=== PATIENT | female | born 1990 | race Caucasian/White ===

== ENCOUNTER → 2016-10-12 | Outpatient (CLI) | payer BC, OTHER ==
[~2016-10-12] MED LIST: ACET-1256 PO; BCPILLS PO; CYCL10TA6 PO; GABA1CAP PO; HYDR-5688 PO; IBUP-1451 PO; LRS10 PO; LYR25 PO; MBC75 PO; METH4PAK PO; NRT25 PO; PRED10TA PO
--- NOTE | 2016-10-12 09:40 | DIAGNOSTIC IMAGING REPORT ---
LEG LENGTH STUDY CLINICAL HISTORY: Lumbago. Leg length discrepancy. FINDINGS: 5 radiographs of the lower extremities and pelvis from a leg length study are presented. The skeletal structures are well mineralized. No fracture is identified. The hip, knee, and ankle joints are grossly normal. The right lower extremity measures 86.6 cm and the left lower extremity measures 86.2 cm as measured from the femoral head to the tibial plafond. There is no significant pelvic tilt. A nonobstructed abdominal bowel gas pattern is noted. IMPRESSION: 1. No acute bony abnormality is seen in the lower extremities or pelvis. 2. The right leg measures 4 mm longer than the left. Electronically signed by: Mason Dee M.D. 10/12/2016 9:39 AM Dictated Date/Time: 10/12/2016 9:35 AM
== END | disposition home or self-care (01) ==
LOC: C.RADBC 09:16
PROVIDERS: ATTEND Physician Assistant
DX: M54.5 Low back pain (principal); M21.70 Unequal limb length (acquired), unspecified site

== ENCOUNTER 2017-02-16 08:34 | Observation (INO) | payer BC, OTHER ==
[~2017-02-16] VITALS: Ht 172.7 cm; Wt 75.0 kg
[~2017-02-16 08:34] MED LIST changes: -CYCL10TA6 PO; -HYDR-5688 PO; -LRS10 PO; -LYR25 PO; -MBC75 PO; -METH4PAK PO; -NRT25 PO; -PRED10TA PO
--- NOTE | 2017-02-16 09:03 | EMERGENCY ROOM VISIT NOTE ---
History Report prepared by Juan C: Kumar De Leon Under the Supervision of: Dr. Yessenia East M.D. First contact with patient: 08:44 Chief Complaint: BACK PAIN Stated Complaint: BACK PAIN History of Present Illness The patient is a 26 year old female who presents to the Emergency Room with complaints of worsening low back pain that started this morning. She says that she has had chronic back pain since 2011 after hurting her back, and has been doing physical therapy in addition to pain management injections. The patient states that it is thought to be a problem with her SI joint L4-L5. She says that the pain has not gotten bad enough that she could not walk or get up out of bed, but this morning, she woke up and could not get up out of bed. The patient adds that she has bilateral leg pain as well. She says that it is hard to turn and she is unable to sit or walk around. The patient notes that she was scheduled to get an MRI a couple weeks ago but could not due to her mother being in a car accident. She denies any fevers, or loss of control of her bowel or bladder. The patient adds that she has a history of kidney stones, but this current pain does not feel like one. The patient denies any chance of . She says that she has never seen a spine doctor. Source of History: patient Onset: This morning Position: back (lower) Symptom Intensity: cannot get out of bed, cannot sit due to pain Timing: worsening Modifying Factors (Worsening): movement Associated Symptoms: No fevers Note: Associated symptoms: Bilateral leg pain. Denies loss of control of bladder or bowel. Review of Systems See HPI for pertinent positives & negatives. A total of 10 systems reviewed and were otherwise negative. 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: employed, student Current/Historical Medications Scheduled Control Pills ( Control Pills), 1 TAB PO HS Cyclobenzaprine Hcl (Flexeril), 1 TAB PO TID Prednisone (Prednisone), 10 MG PO DIRECTED Scheduled PRN Hydrocodone/Acetaminophen 5MG/325MG (Grethel 5MG/325MG), 1 TABLET PO Q6 PRN for Pain Allergies Coded Allergies: No Known Allergies (Verified , 02/16/17) Uncoded Allergies: NKA (Allergy, Mild, 02/03/15) Physical Exam Vital Signs Date Time Temp Pulse Resp B/P (MAP) Pulse Ox O2 Delivery O2 Flow Rate FiO2 02/16/17 14:11 107 18 145/75 98 Room Air 02/16/17 13:26 113 02/16/17 12:47 90 18 114/65 96 Room Air 02/16/17 09:51 82 02/16/17 09:50 84 18 137/77 99 Room Air 02/16/17 08:36 36.6 94 20 104/53 99 Room Air Physical Exam Vital signs reviewed. General: 26 year old female who was found kneeling on one leg at bedside unable to change into gown or get into bed without help. HEENT: No scleral icterus, PERRLA, neck supple. Atraumatic. Cardiovascular: Regular rate and rhythm, no extra sounds. Pulmonary: Clear to auscultation bilaterally, normal work of breathing. Abdomen: Soft, nontender, nondistended, positive bowel sounds. Musculoskeletal: Left greater than right paraspinous muscle tenderness and spasm. Unable to perform straight leg raise on either leg secondary to low back pain. Difficulty changing positions without significant assistance. Neurologic: Patient awake alert and oriented x 3 Skin: Warm, dry, no rash Medical Decision & Procedures ER Provider Diagnostic Interpretation: LUMBAR SPINE W/O CONTRAST HISTORY: Pain lumbar radiculopathy TECHNIQUE: Multiplanar multisequence MRI of the lumbar spine was performed without the use of contrast. COMPARISON: None. FINDINGS: For the purpose of the report the L5-S1 disc space will be located on axial image 27 of 30. Moderate disc desiccation L4-L5. Posterior bulging disc/mild disc herniation at that level. No evidence for bone marrow replacing process. L1-L2: No significant central canal or neural foraminal narrowing. L2-L3: No significant central canal or neural foraminal narrowing. L3-L4: No significant central canal or neural foraminal narrowing. L4-L5: Mild broad-based central disc herniation. Moderate impact anterior thecal sac. No significant compromise of the neuroforamina. L5-S1: No significant central canal or neural foraminal narrowing. IMPRESSION: 1. Mild central disc herniation L4-L5. 2. Minimal/mild impact upon the anterior thecal sac. 3. Study is otherwise negative. The above report was generated using voice recognition software. It may contain grammatical, syntax or spelling errors. Electronically signed by: Brandan Tubbs M.D. 02/16/2017 3:45 PM Dictated Date/Time: 02/16/2017 3:40 PM Laboratory Results 02/16/17 09:10 Red Blood Count 4.26, Mean Corpuscular Volume 93.9, Mean Corpuscular Hemoglobin 31.7, Mean Corpuscular Hemoglobin Concent 33.8, Mean Platelet Volume 10.0, Neutrophils (%) (Auto) 77.6, Lymphocytes (%) (Auto) 16.6, Monocytes (%) (Auto) 4.4, Eosinophils (%) (Auto) 0.7, Basophils (%) (Auto) 0.5, Neutrophils # (Auto) 8.50, Lymphocytes # (Auto) 1.82, Monocytes # (Auto) 0.48, Eosinophils # (Auto) 0.08, Basophils # (Auto) 0.05 02/16/17 09:10 Test 02/16/17 09:10 02/16/17 13:55 White Blood Count 10.95 K/uL (4.8-10.8) Red Blood Count 4.26 M/uL (4.2-5.4) Hemoglobin 13.5 g/dL (12.0-16.0) Hematocrit 40.0 % (37-47) Mean Corpuscular Volume 93.9 fL (80-100) Mean Corpuscular Hemoglobin 31.7 pg (25-34) Mean Corpuscular Hemoglobin Concent 33.8 g/dl (32-36) Platelet Count 255 K/uL (130-400) Mean Platelet Volume 10.0 fL (7.4-10.4) Neutrophils (%) (Auto) 77.6 % Lymphocytes (%) (Auto) 16.6 % Monocytes (%) (Auto) 4.4 % Eosinophils (%) (Auto) 0.7 % Basophils (%) (Auto) 0.5 % Neutrophils # (Auto) 8.50 K/uL (1.4-6.5) Lymphocytes # (Auto) 1.82 K/uL (1.2-3.4) Monocytes # (Auto) 0.48 K/uL (0.11-0.59) Eosinophils # (Auto) 0.08 K/uL (0-0.5) Basophils # (Auto) 0.05 K/uL (0-0.2) RDW Standard Deviation 42.6 fL (36.4-46.3) RDW Coefficient of Variation 12.5 % (11.5-14.5) Immature Granulocyte % (Auto) 0.2 % Immature Granulocyte # (Auto) 0.02 K/uL (0.00-0.02) Anion Gap 6.0 mmol/L (3-11) Est Creatinine Clear Calc Drug Dose 102.0 ml/min Estimated GFR () 110.4 Estimated GFR (Non- 95.2 BUN/Creatinine Ratio 14.3 (10-20) Calcium Level 8.7 mg/dl (8.5-10.1) Urine Color YELLOW Urine Appearance CLOUDY (CLEAR) Urine pH 7.5 (4.5-7.5) Urine Specific [place] 1.021 (1.000-1.030) Urine Protein NEG (NEG) Urine Glucose (UA) NEG (NEG) Urine Ketones 1+ (NEG) Urine Occult Blood NEG (NEG) Urine Nitrite NEG (NEG) Urine Bilirubin NEG (NEG) Urine Urobilinogen NEG (NEG) Urine Leukocyte Esterase LARGE (NEG) Urine WBC (Auto) >30 /hpf (0-5) Urine RBC (Auto) 0-4 /hpf (0-4) Urine Hyaline Casts (Auto) 10-30 /lpf (0-5) Urine Epithelial Cells (Auto) >30 /lpf (0-5) Urine Bacteria (Auto) 1+ (NEG) Laboratory results per my review. Medications Administered Medications (Trade) Dose Ordered Sig/John Route Start Time Stop Time Status Last Admin Dose Admin Morphine Sulfate (MoRPHine SULFATE INJ) 4 mg NOW STAT IV 02/16/17 09:31 02/16/17 09:33 DC 02/16/17 09:43 4 MG Lorazepam (Ativan Inj) 1 mg NOW STAT IV 02/16/17 09:31 02/16/17 09:33 DC 02/16/17 09:43 1 MG Methylprednisolone Sodium Succinate (Solu-Medrol IV) 125 mg NOW STAT IV 02/16/17 09:31 02/16/17 09:33 DC 02/16/17 09:42 125 MG Sodium Chloride 1,000 ml @ 999 mls/hr Q1H1M STAT IV 02/16/17 09:31 02/16/17 10:31 DC 02/16/17 09:43 999 MLS/HR Morphine Sulfate (MoRPHine SULFATE INJ) 4 mg NOW STAT IV 02/16/17 10:16 02/16/17 10:17 DC 02/16/17 10:27 4 MG Morphine Sulfate (MoRPHine SULFATE INJ) 4 mg NOW STAT IV 02/16/17 12:49 02/16/17 12:50 DC 02/16/17 13:09 4 MG Promethazine HCl 12.5 mg/Sodium Chloride 50.5 ml @ 204 mls/hr NOW STAT IV 02/16/17 14:01 02/16/17 14:15 DC 02/16/17 14:10 204 MLS/HR ED Course 0854: Past medical records reviewed. The patient was evaluated in room A11B. A complete history and physical examination was performed. 0931: Ordered NSS 1000 ml @ 999 mls/hr IV, Solu-Medrol IV 125 mg IV, Ativan Inj 1 mg IV, Morphine Sulfate Inj 4 mg IV. 1400: I reevaluated and updated the patient. 1401: Ordered Promethazine HCl 12.5 mg/Sodium Chloride 50.5 ml @ 204 mls/hr IV. Medical Decision Differential diagnosis: Etiologies such as musculoskeletal, disc herniation, fracture, aortic disease, metastatic disease, cord compression, discitis, infection, renal colic, gastrointestinal, acute exacerbation of chronic back pain, sciatica, cauda equina, as well as others were entertained. This patient was evaluated and appeared to be in no significant distress. IV access was obtained and laboratory work was drawn. The patient was placed on the laboratory monitor. She was medicated with IV morphine, IV Ativan and IV Solu- Medrol. The patient required several additional doses of IV morphine for her discomfort. Laboratory work is fairly unrevealing. The patient was sent for MRI of the lumbar spine due to her immobilizing pain. The MRI reveals an L4-L5 lumbar disc herniation with mild compression of the anterior thecal sac. An ambulatory trial was performed and the patient failed, stating her pain increased to a 10/10. She is fearful of the stairs into her house as well. [facility] and further management. Patient is aware of the plan and agrees. Medication Reconcilliation Current Medication List: was personally reviewed by me Blood Pressure Screening Patient's blood pressure: Normal blood pressure Impression Primary Impression: Lumbar disc herniation with radiculopathy Scribe Attestation The scribe's documentation has been prepared under my direction and personally reviewed by me in its entirety. I confirm that the note above accurately reflects all work, treatment, procedures, and medical decision making performed by me. Departure Information Prescriptions Hydrocodone/Acetaminophen 5MG/325MG (Grethel 5MG/325MG) Tab 1 TABLET PO Q6 Y for Pain, #20 TAB Prov: Yessenia East M.D. 02/16/17 Cyclobenzaprine Hcl (FLEXERIL) 10 Mg Tab 1 TAB PO TID for 10 Days, #30 TAB Prov: Yessenia East M.D. 02/16/17 Prednisone (Prednisone) 10 Mg Tab 10 MG PO DIRECTED, #31 TAB 40 mg for 4 days, 30 mg for 3 days, 20 mg for 2 days, 10 mg for 2 days Prov: Yessenia East M.D. 02/16/17 Referrals Maciej Stinson M.D. (PCP) Patient Instructions [facility]
[2017-02-16] MEDS ORDERED: SODIUM CHLORIDE 0.9% 1000ML 1,000 ML IV STA (09:31)
[2017-02-16] MEDS ORDERED: MoRPHine SULFATE 4 MG/ML 1 ML CARP\\VIAL IV STA ×3 (09:31→12:49)
[2017-02-16] MEDS ORDERED: LORAZEPAM 2 MG/ML 1 ML VIAL IV STA (09:31)
[2017-02-16] MEDS ORDERED: METHYLPREDNISOLONE 125 MG VIAL IV STA (09:31)
[2017-02-16 10:25] LABS: BASO % 0.5 %; BASO ABS # 0.05 K/uL (0-0.2); COMPLETE YES; EOS % 0.7 %; IG% 0.2 %; LYMPH % 16.6 %; LYMPH ABS # 1.82 K/uL (1.2-3.4); MEAN CELL VOLUME 93.9 fL (80-100); MEAN CORPUSCULAR HEMOGLOBIN 31.7 pg (25-34); MEAN CORPUSCULAR HGB CONC 33.8 g/dl (32-36); MONO % 4.4 %; NEUT % 77.6 %; PLATELET COUNT 255 K/uL (130-400); RED BLOOD COUNT 4.26 M/uL (4.2-5.4); WHITE BLOOD COUNT 10.95 K/uL (4.8-10.8)
[2017-02-16 10:46] LABS: POTASSIUM 3.9 mmol/L (3.5-5.1)
[2017-02-16 10:48] LABS: BUN/CREATININE RATIO 14.3 (10-20); CALCIUM 8.7 mg/dl (8.5-10.1); CREATININE 0.85 mg/dl (0.60-1.20)
[2017-02-16] MEDS ORDERED: PROMETHAZINE HCL INJ 12.5 MG in SODIUM CHLORIDE 0.9% 50ML 50 ML IV STA (14:01)
[2017-02-16] MEDS ORDERED: PROMETHAZINE HCL INJ 25 MG/ML 1 ML VIAL ONE (14:05)
[2017-02-16 14:24] LABS: URINE APPEARANCE CLOUDY (CLEAR); URINE BILIRUBIN NEG (NEG); URINE COLOR YELLOW; URINE EPITHELIAL CELL AUTO >30 /lpf (0-5); URINE NITRITE NEG (NEG); URINE PH 7.5 (4.5-7.5); URINE SPECIFIC GRAVITY 1.021 (1.000-1.030); UROBILINOGEN NEG (NEG); ZZUR CULT IF INDIC CLEAN CATCH YES
[2017-02-16 15:07] LABS: MANUAL MICROSCOPIC REQUIRED? NO; REVIEW REQ? NO; SULFASALICYLIC ACID NEG (NEG)
--- NOTE | 2017-02-16 15:46 | DIAGNOSTIC IMAGING REPORT ---
LUMBAR SPINE W/O CONTRAST HISTORY: Pain lumbar radiculopathy TECHNIQUE: Multiplanar multisequence MRI of the lumbar spine was performed without the use of contrast. COMPARISON: None. FINDINGS: For the purpose of the report the L5-S1 disc space will be located on axial image 27 of 30. Moderate disc desiccation L4-L5. Posterior bulging disc/mild disc herniation at that level. No evidence for bone marrow replacing process. L1-L2: No significant central canal or neural foraminal narrowing. L2-L3: No significant central canal or neural foraminal narrowing. L3-L4: No significant central canal or neural foraminal narrowing. L4-L5: Mild broad-based central disc herniation. Moderate impact anterior thecal sac. No significant compromise of the neuroforamina. L5-S1: No significant central canal or neural foraminal narrowing. IMPRESSION: 1. Mild central disc herniation L4-L5. 2. Minimal/mild impact upon the anterior thecal sac. 3. Study is otherwise negative. The above report was generated using voice recognition software. It may contain grammatical, syntax or spelling errors. Electronically signed by: Brandan Tubbs M.D. 02/16/2017 3:45 PM Dictated Date/Time: 02/16/2017 3:40 PM
[2017-02-16] MEDS ORDERED: PRED10TA PO (15:59)
[2017-02-16] MEDS ORDERED: CYCL10TA6 PO (16:00)
[2017-02-16] MEDS ORDERED: HYDR-5688 PO (16:00)
[2017-02-16 16:45] VITALS: Ht 172.7 cm; Wt 75.0 kg
[2017-02-16] MEDS ORDERED: ACETAMINOPHEN 325 MG TAB PO PRN (17:45)
[2017-02-16] MEDS ORDERED: ONDANSETRON INJ 2 MG/ML 2 ML VIAL IV PRN (17:45)
--- NOTE | 2017-02-16 17:57 | Medical Student: [facility] ---
Med Student History & Physical Date & Time of Service: Feb 16, 2017 at 17:57 Chief Complaint: Back Pain Primary Care Physician: Maciej Stinson M.D. History of Present Illness Source: patient, clinic records Ms. Paredes is a 26yo female with a history of low back pain since 2011 who presents with an exacerbation of her back pain since last night. She reports being more uncomfortable yesterday with tightness and spasms in her low back which culminated with her being unable to get out of bed this morning. At times her pains shoots down her right anterior leg to the knee. She has some episodic right foot numbness, especially when walking. Her pain is primarily on the right side of her back and is made worse with bending forward and standing up from seated position. Her pain is also made worse with walking. No falls. No bowel or bladder issues. Denies fevers, chills, headache, dizziness, lightheadedness, cp, sob, abdominal pain, muscle weakness, calf tenderness. 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 She sees Dr. Hamilton at [facility] and has had multiple SI joint injections with equivocal results. Additionally, she has participated in multiple courses of physical therapy with limited benefit. She is currently takes flexeril though she does not get much relief from it. She has tried gabapentin in the past but it makes her drowsy. She gets nauseated with narcotic pain medication. Past Medical/Surgical History Medical Problems: (1) Herniated intervertebral disc of lumbar spine Status: Acute (2) Lumbar disc herniation with radiculopathy Status: Acute Social History Smoking Status: Never Smoker Alcohol Use: occasionally Drug Use: none Marital Status: single, in relationship Housing status: lives with family, lives with significant other (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 Allergies Coded Allergies: No Known Allergies (Verified , 02/16/17) Uncoded Allergies: NKA (Allergy, Mild, 02/03/15) Medications Control Pills ( Control Pills), 1 TAB PO HS Cyclobenzaprine Hcl (Flexeril), 1 TAB PO TID Hydrocodone/Acetaminophen 5MG/325MG ([place] 5MG/325MG), 1 TABLET PO Q6 PRN for Pain Prednisone (Prednisone), 10 MG PO DIRECTED Review of Systems Constitutional: No fever, No chills Eyes: No eye pain, No diplopia ENT: No sore throat, No trouble swallowing Respiratory: No cough, No wheezing, No shortness of breath Cardiovascular: No chest pain, No palpitations Abdomen: No pain, No nausea, No vomiting, No diarrhea, No constipation Genitourinary - Female: No urinary incontinence, No urinary retention Neurologic: + numbness/tingling, No paralysis Physical Exam Vital Signs (24 Hours) Date Time Temp Pulse Resp B/P (MAP) Pulse Ox O2 Delivery O2 Flow Rate FiO2 02/16/17 16:45 Room Air 02/16/17 14:11 107 18 145/75 98 Room Air 02/16/17 13:26 113 02/16/17 12:47 90 18 114/65 96 Room Air 02/16/17 09:51 82 02/16/17 09:50 84 18 137/77 99 Room Air 02/16/17 08:36 36.6 94 20 104/53 99 Room Air General Appearance: WD/WN, + mild distress (laying still supine in bed) Head: normocephalic, atraumatic Eyes: normal inspection, PERRL, EOMI ENT: normal ENT inspection, hearing grossly normal, pharynx normal Neck: supple, no adenopathy Respiratory/Chest: lungs clear, normal breath sounds, no respiratory distress, no accessory muscle use Cardiovascular: regular rate, rhythm, no edema, no gallop, no murmur, normal peripheral pulses Abdomen/GI: normal bowel sounds, non tender, soft Back: + muscle spasm, + pertinent finding (extremely guarded) Extremities/Musculoskelatal: normal inspection, no calf tenderness, normal capillary refill Neurologic/Psych: pattern chart writer II-XII nml as tested, no motor/sensory deficits, alert, normal mood/affect, normal reflexes, oriented x 3 Neuro: Sensation to light touch and pinprick intact bilaterally L1, L2, L3, L4, L5, S1 Strength RLE L1 5/5 pain L2 5/5 pain L3 5/5 L4 5/5 L5 5/5 S1 5/5 LLE L1 4/5 pain L2 4/5 pain L3 5/5 L4 5/5 L5 5/5 S1 5/5 LE ROM limited by pain Bilateral upper extremities 5/5 strength throughout Reflexes 2+ bilateral biceps, triceps, brachioradialis, patellar, Achilles reflexes, Babinski is downgoing bilaterally Cerebellar heel to solo deferred due to pain Gait not tested Diagnostics Laboratory Results Results Past 24 Hours Test 02/16/17 09:10 02/16/17 13:55 Range/Units White Blood Count 10.95 4.8-10.8 K/uL Red Blood Count 4.26 4.2-5.4 M/uL Hemoglobin 13.5 12.0-16.0 g/dL Hematocrit 40.0 37-47 % Mean Corpuscular Volume 93.9 80-100 fL Mean Corpuscular Hemoglobin 31.7 25-34 pg Mean Corpuscular Hemoglobin Concent 33.8 32-36 g/dl Platelet Count 255 130-400 K/uL Mean Platelet Volume 10.0 7.4-10.4 fL Neutrophils (%) (Auto) 77.6 % Lymphocytes (%) (Auto) 16.6 % Monocytes (%) (Auto) 4.4 % Eosinophils (%) (Auto) 0.7 % Basophils (%) (Auto) 0.5 % Neutrophils # (Auto) 8.50 1.4-6.5 K/uL Lymphocytes # (Auto) 1.82 1.2-3.4 K/uL Monocytes # (Auto) 0.48 0.11-0.59 K/uL Eosinophils # (Auto) 0.08 0-0.5 K/uL Basophils # (Auto) 0.05 0-0.2 K/uL RDW Standard Deviation 42.6 36.4-46.3 fL RDW Coefficient of Variation 12.5 11.5-14.5 % Immature Granulocyte % (Auto) 0.2 % Immature Granulocyte # (Auto) 0.02 0.00-0.02 K/uL Sodium Level 139 136-145 mmol/L Potassium Level 3.9 3.5-5.1 mmol/L Chloride Level 109 98-107 mmol/L Carbon Dioxide Level 24 21-32 mmol/L Anion Gap 6.0 3-11 mmol/L Blood Urea Nitrogen 12 7-18 mg/dl Creatinine 0.85 0.60-1.20 mg/dl Est Creatinine Clear Calc Drug Dose 102.0 ml/min Estimated GFR () 110.4 Estimated GFR (Non- 95.2 BUN/Creatinine Ratio 14.3 10-20 Random Glucose 98 70-99 mg/dl Calcium Level 8.7 8.5-10.1 mg/dl Urine Color YELLOW Urine Appearance CLOUDY CLEAR Urine pH 7.5 4.5-7.5 Urine Specific [place] 1.021 1.000-1.030 Urine Protein NEG NEG Urine Glucose (UA) NEG NEG Urine Ketones 1+ NEG Urine Occult Blood NEG NEG Urine Nitrite NEG NEG Urine Bilirubin NEG NEG Urine Urobilinogen NEG NEG Urine Leukocyte Esterase LARGE NEG Urine WBC (Auto) >30 0-5 /hpf Urine RBC (Auto) 0-4 0-4 /hpf Urine Hyaline Casts (Auto) 10-30 0-5 /lpf Urine Epithelial Cells (Auto) >30 0-5 /lpf Urine Bacteria (Auto) 1+ NEG Microbiology Results 02/16/17 Urine Culture, Received Pending Diagnostic Radiology LUMBAR SPINE W/O CONTRAST HISTORY: Pain lumbar radiculopathy TECHNIQUE: Multiplanar multisequence MRI of the lumbar spine was performed without the use of contrast. COMPARISON: None. FINDINGS: For the purpose of the report the L5-S1 disc space will be located on axial image 27 of 30. Moderate disc desiccation L4-L5. Posterior bulging disc/mild disc herniation at that level. No evidence for bone marrow replacing process. L1-L2: No significant central canal or neural foraminal narrowing. L2-L3: No significant central canal or neural foraminal narrowing. L3-L4: No significant central canal or neural foraminal narrowing. L4-L5: Mild broad-based central disc herniation. Moderate impact anterior thecal sac. No significant compromise of the neuroforamina. L5-S1: No significant central canal or neural foraminal narrowing. IMPRESSION: 1. Mild central disc herniation L4-L5. 2. Minimal/mild impact upon the anterior thecal sac. 3. Study is otherwise negative. The above report was generated using voice recognition software. It may contain grammatical, syntax or spelling errors. Electronically signed by: Brandan Tubbs M.D. 02/16/2017 3:45 PM Dictated Date/Time: 02/16/2017 3:40 PM Impression Assessment and Plan This is a 26yo female with a history of low back pain since 2011 who presents with an exacerbation of her back pain last night and inability to move or bend without sharp pain today. MRI lumbar spine shows L4-L5 central disk herniation. Patient will be admitted for observation and given IV methylprednisolone. Plan: Precautions: Fall 1. L4-L5 central disk herniation with severe low back pain -admit to med/surg for observation -OOB as tolerated -vitals qshift -IV solumedrol -PRN Tylenol 650mg q4h prn pain -baclofen 5mg PO TID -consult pain management -consider PM&R consult for lumbar epidural steroid injection 2. Diet -Regular diet 3. DVT prophylaxis -SCD -may ambulate as tolerated 4. Disposition -Location: home -Date: TBD Level of Care Med/Surg Advanced Directives Existing Living Will: No Existing Power of Homicide Investigator: No Resuscitation Status FULL RESUSCITATION DVT Prophylaxis SCDs Social Service Consult None Apply
[2017-02-16] MEDS ORDERED: IV FLUIDS COMPLETED PRN (18:30)
[2017-02-16 18:32] VITALS: O2SAT 97
[2017-02-16 18:45] VITALS: BP 133/71; PULSE 88; TEMP 36.8; O2SAT 94
[2017-02-16] MEDS: METHYLPREDNISOLONE IV 60 MG in SYRINGE 0 ML IV SCH (19:50)
[2017-02-16] MEDS: HYDROCODONE/ACETAMOPHEN 5/325MG TAB PO PRN (19:51)
--- NOTE | 2017-02-16 20:08 | History and Physical ---
History & Physical Date & Time of Service: Feb 16, 2017 at 19:55 Chief Complaint: Herniated Intervertebral Disc Of Lumbar Spine Primary Care Physician: Maciej Stinson M.D. History of Present Illness Source: patient The patient is a 26-year-old female who presents emergency department with complaint of worsening low back pain to the point that she cannot walk and was unable to get out of bed this morning. She reports that the pain can shoot down her right anterior leg to her knee and has episodic right foot numbness especially with walking. Her pain is primarily present on the right side of her back and is made worse when she bends forward and/or stands up from seated position. She most recently underwent injection by Dr. Ward for pain management which she reports helped for 20 minutes. She's received a total of 11 injections to this point. She had been scheduled for an MRI recently, but was unable to get the due to her mother's illness. She takes Flexeril with minimal relief and takes occasional oxycodone as well. She has no bowel or bladder incontinence issues. 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 Immunizations History of Influenza Vaccine: Unknown History of Tetanus Vaccine?: Unknown History of Pneumococcal: No History of Hepatitis B Vaccine: Unknown Multi-Drug Resistant Organisms History of MDRO: No Allergies Coded Allergies: No Known Allergies (Verified , 02/16/17) Home Medications Scheduled Control Pills ( Control Pills), 1 TAB PO HS Cyclobenzaprine Hcl (Flexeril), 1 TAB PO TID Prednisone (Prednisone), 10 MG PO DIRECTED Scheduled PRN Hydrocodone/Acetaminophen 5MG/325MG ([place] 5MG/325MG), 1 TABLET PO Q6 PRN for Pain Review of Systems The patient denies chest pain, palpitations, shortness of breath, cough, lower extremity swelling, vision change, hearing change, sore throat, fevers, chills, sweats, weight change, fatigue, nausea, vomiting, abdominal pain, pelvic pain, blood in urine or stool, dysuria, urinary frequency or urgency, lightheadedness , dizziness, headache, memory loss, rash, abnormal bruising or bleeding, imbalance, focal or generalized weakness, numbness or tingling in arms, generalized arthralgias or myalgias, neck pain, night sweats, or allergy symptoms. The review of systems is otherwise negative other than for that already noted above, and at least 10 systems have been reviewed. Physical Exam Vital Signs Date Time Temp Pulse Resp B/P (MAP) Pulse Ox O2 Delivery O2 Flow Rate FiO2 02/16/17 18:32 78 20 140/90 97 Room Air 02/16/17 16:45 Room Air 02/16/17 14:34 78 22 97 02/16/17 14:30 140/92 02/16/17 14:12 145/75 02/16/17 14:11 107 18 145/75 98 Room Air 02/16/17 14:04 85 18 02/16/17 13:35 114/65 02/16/17 13:34 89 21 02/16/17 13:26 113 02/16/17 12:47 90 18 114/65 96 Room Air 02/16/17 12:46 114/65 02/16/17 11:34 95 18 02/16/17 11:04 78 19 02/16/17 10:34 96 23 02/16/17 10:04 74 19 98 02/16/17 09:51 82 02/16/17 09:50 84 18 137/77 99 Room Air 02/16/17 09:50 137/77 02/16/17 08:36 36.6 94 20 104/53 99 Room Air The patient is awake, well-developed and adequately nourished, alert and oriented 3, normocephalic and atraumatic, lying in bed and in no acute distress. HEENT--PERRL, EOMI, mucous membranes and oropharynx dry. Neck--supple, no JVD or bruits, thyroid normal, trachea midline, no adenopathy. Heart--normal S1 and S2, no extra beats, no murmurs, rubs or gallops. Lungs--clear bilaterally with good air movement, no respiratory distress, no accessory muscle use. Abdomen--normal bowel sounds and soft, nontender and nondistended, no hernias or masses, no organomegaly. Extremities--no cyanosis, clubbing or edema. There are good distal pulses b/l. Dermatologic--normal skin turgor, normal color, warm and dry, no abnormal lymph nodes, no rash. Neurologic--cranial nerves II through XII grossly intact, motor and sensory examination normal. Rheumatologic--reproducible pain over lower lumbar spine area and paraspinal areas right greater than left Psychiatric--normal affect. Diagnostics Laboratory Results Results Past 24 Hours Test 02/16/17 09:10 02/16/17 13:55 Range/Units White Blood Count 10.95 4.8-10.8 K/uL Red Blood Count 4.26 4.2-5.4 M/uL Hemoglobin 13.5 12.0-16.0 g/dL Hematocrit 40.0 37-47 % Mean Corpuscular Volume 93.9 80-100 fL Mean Corpuscular Hemoglobin 31.7 25-34 pg Mean Corpuscular Hemoglobin Concent 33.8 32-36 g/dl Platelet Count 255 130-400 K/uL Mean Platelet Volume 10.0 7.4-10.4 fL Neutrophils (%) (Auto) 77.6 % Lymphocytes (%) (Auto) 16.6 % Monocytes (%) (Auto) 4.4 % Eosinophils (%) (Auto) 0.7 % Basophils (%) (Auto) 0.5 % Neutrophils # (Auto) 8.50 1.4-6.5 K/uL Lymphocytes # (Auto) 1.82 1.2-3.4 K/uL Monocytes # (Auto) 0.48 0.11-0.59 K/uL Eosinophils # (Auto) 0.08 0-0.5 K/uL Basophils # (Auto) 0.05 0-0.2 K/uL RDW Standard Deviation 42.6 36.4-46.3 fL RDW Coefficient of Variation 12.5 11.5-14.5 % Immature Granulocyte % (Auto) 0.2 % Immature Granulocyte # (Auto) 0.02 0.00-0.02 K/uL Sodium Level 139 136-145 mmol/L Potassium Level 3.9 3.5-5.1 mmol/L Chloride Level 109 98-107 mmol/L Carbon Dioxide Level 24 21-32 mmol/L Anion Gap 6.0 3-11 mmol/L Blood Urea Nitrogen 12 7-18 mg/dl Creatinine 0.85 0.60-1.20 mg/dl Est Creatinine Clear Calc Drug Dose 102.0 ml/min Estimated GFR () 110.4 Estimated GFR (Non- 95.2 BUN/Creatinine Ratio 14.3 10-20 Random Glucose 98 70-99 mg/dl Calcium Level 8.7 8.5-10.1 mg/dl Urine Color YELLOW Urine Appearance CLOUDY CLEAR Urine pH 7.5 4.5-7.5 Urine Specific [place] 1.021 1.000-1.030 Urine Protein NEG NEG Urine Glucose (UA) NEG NEG Urine Ketones 1+ NEG Urine Occult Blood NEG NEG Urine Nitrite NEG NEG Urine Bilirubin NEG NEG Urine Urobilinogen NEG NEG Urine Leukocyte Esterase LARGE NEG Urine WBC (Auto) >30 0-5 /hpf Urine RBC (Auto) 0-4 0-4 /hpf Urine Hyaline Casts (Auto) 10-30 0-5 /lpf Urine Epithelial Cells (Auto) >30 0-5 /lpf Urine Bacteria (Auto) 1+ NEG Microbiology Results 02/16/17 Urine Culture, Received Pending Diagnostic Radiology Patient Name: ROSENDO DODSON Unit Number: [id number] Dictated: 02/16/17 154 Transcribed: 02/16/17 1540 MS Printed Date/Time: [~ rep prt dt]/[~ rep prt tm] [~ rep ct labl] - [~ rep ct ivnm] [facility] [place] [address] Dictated: 02/16/17 1540 Transcribed: 02/16/17 1540 MS Printed Date/Time: [~ rep prt dt]/[~ rep prt tm] [~ rep ct labl] - [~ rep ct ivnm] [~ rep ct add3]] LUMBAR SPINE W/O CONTRAST HISTORY: Pain lumbar radiculopathy TECHNIQUE: Multiplanar multisequence MRI of the lumbar spine was performed without the use of contrast. COMPARISON: None. FINDINGS: For the purpose of the report the L5-S1 disc space will be located on axial image 27 of 30. Moderate disc desiccation L4-L5. Posterior bulging disc/mild disc herniation at that level. No evidence for bone marrow replacing process. L1-L2: No significant central canal or neural foraminal narrowing. L2-L3: No significant central canal or neural foraminal narrowing. L3-L4: No significant central canal or neural foraminal narrowing. L4-L5: Mild broad-based central disc herniation. Moderate impact anterior thecal sac. No significant compromise of the neuroforamina. L5-S1: No significant central canal or neural foraminal narrowing. IMPRESSION: 1. Mild central disc herniation L4-L5. 2. Minimal/mild impact upon the anterior thecal sac. 3. Study is otherwise negative. The above report was generated using voice recognition software. It may contain grammatical, syntax or spelling errors. Electronically signed by: Brandan Tubbs M.D. 02/16/2017 3:45 PM Dictated Date/Time: 02/16/2017 3:40 PM The status of this report is Signed. Draft = Not yet reviewed or approved by Radiologist. Signed = Reviewed and approved by Radiologist. <AttendingPhy></AttendingPhy> <FamilyPhy>Maciej Stinson M.D.</FamilyPhy > <PrimaryPhy>Maciej Stinson M.D.</PrimaryPhy> <UnitNumber>[id number]</ UnitNumber> <VisitNumber>[id number]</VisitNumber> <PatientName>ROSENDO DODSON</PatientName> <DateOfBirth>1990</DateOfBirth> <Location>C.PARAM< /Location> <ServiceDate>02/16/17</ServiceDate> <MNE>ESINDI</MNE> <OrderingPhy> Yessenia Eats M.D.</OrderingPhy> <OrderingPhyMNE>f rep ord dr mariee</ OrderingPhyMNE> <DictatingPhyMNE>f rep dict dr mariee</DictatingPhyMNE> <CCListMNE> f rep ct kodi</CCListMNE> <AdmittingPhyMNE>f pt admit dr mariee</AdmittingPhyMNE> < AttendingPhyMNE>f pt attend dr mariee</AttendingPhyMNE> <ConsultingPhyMNE>f pt consult dr mariee</ConsultingPhyMNE> <FamilyPhyMNE>f pt fam dr mariee</FamilyPhyMNE> <OtherPhyMNE>f pt other dr mariee</OtherPhyMNE> < PrimaryPhyMNE>f pt prim care dr mariee</PrimaryPhyMNE> <ReferringPhyMNE>f pt referring dr mariee</ReferringPhyMNE> Impression Assessment and Plan L4- 5 moderate disc desiccation with posterior bulging disc a mild disc herniation at that level--the patient be admitted to the medical surgical floor for further evaluation. She has received 125 mg of Solu-Medrol IV and emergency department and will be continued at 60 mg IV every 6 hours. Acetaminophen, hydrocodone/APAP, and morphine IV for pain control. We'll consult Dr. Ward from pain management. We'll stop Flexeril, and start baclofen 10 mg by mouth 3 times a day. Level of Care Med/Surg Advanced Directives Existing Advance Directive: No Existing Living Will: No Existing Power of Retail Custodial Associate: No Resuscitation Status FULL RESUSCITATION VTE Prophylaxis VTE Risk Assessment Done? Y/N: Yes Risk Level: Moderate Given or contraindicated: SCD's Social Service Consult None Apply
[2017-02-16] MEDS: BACLOFEN 10 MG TAB PO SCH (20:55)
[2017-02-16] MEDS: MoRPHine SULFATE 2 MG/ML CARP IV PRN (20:55)
[2017-02-16 22:52] VITALS: BP 113/70; PULSE 69; TEMP 36.8; O2SAT 97
[2017-02-16] MEDS: BIRTH CONTROL - ORDER AWAITING ACTION SCH (23:15)
[2017-02-17] MEDS: METHYLPREDNISOLONE IV 60 MG in SYRINGE 0 ML IV SCH ×4 (02:34→20:11)
[2017-02-17 07:09] VITALS: BP 118/66; PULSE 72; TEMP 36.8; O2SAT 97
[2017-02-17] MEDS: BACLOFEN 10 MG TAB PO SCH ×3 (08:57→21:15)
[2017-02-17] MEDS: BIRTH CONTROL - ORDER AWAITING ACTION SCH ×2 (08:58→16:00)
[2017-02-17] MEDS: HYDROCODONE/ACETAMOPHEN 5/325MG TAB PO PRN ×2 (09:00→15:59)
--- NOTE | 2017-02-17 09:29 | Pain Management Consultation ---
Pain Management Consultation Date of Consultation Feb 17, 2017. Reason for Consultation Lumbar radiculitis Pain Location 1 - History 26-year-old female presented to the [facility] emergency room yesterday evening with intractable back and lower extremity pain. She is well known to the [facility] pain management office since 2011 with a previously known L4 to 5 disc extrusion. She's had an L4 to 5 interlaminar epidural steroid injection, a right L4 to 5 transforaminal epidural steroid injection, intra-articular lumbar facet injections, SI joint injections with limited benefit in diminishing her pain. She has tried Flexeril and gabapentin previously. She reports that gabapentin and she has been weaning herself off of the due to to mental sedation and inability to think clearly during the day at dosages of 100 mg by mouth twice a day. She had been ordered a MRI at her most recent pain management office visit in November 2016 but was unable to have this completed secondary to her mother being in a car accident. She reports that when she was admitted her pain was intractable radiating down bilateral lower extremities past the level of the knee. He denies any trauma or other etiology of this acute flare of low back and lumbar radicular pain. She reported yesterday she was able to walk with 10 out of 10 pain however, since IV steroids rest and pain medication her pain is dramatically improved from yesterday. She reports now she is able to log roll in bed and walk independently to the restroom. She reports the pain is back to her typical right lower extremity along the L4 dermatome not past the knee pain. She denies any bowel or bladder incontinence motor weakness foot drop or falls. She reports she was able to sleep adequately the last evening. She reports her pain is currently 0-5 out of 10. She denies any constitutional complaints currently. 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 Works at [employer] Allergies Coded Allergies: No Known Allergies (Verified , 02/16/17) Medications Current Inpatient Medications Medications (Trade) Dose Ordered Sig/John Route Start Time Stop Time Status Last Admin Dose Admin Acetaminophen (Tylenol Tab) 650 mg Q4H PRN PO 02/16/17 17:45 03/18/17 17:44 Acetaminophen/ Hydrocodone Bitart ([place] 5/325 Tab) 1 tab Q6 PRN PO 02/16/17 17:45 03/02/17 17:44 02/16/17 19:51 1 TAB Miscellaneous Information (Order Awaiting Action) 1 ea QS N/A 02/17/17 00:00 03/19/17 00:00 Ondansetron HCl (Zofran Inj) 4 mg Q6H PRN IV 02/16/17 17:45 03/18/17 17:44 02/16/17 20:54 4 MG Baclofen (Lioresal Tab) 10 mg TID PO 02/16/17 21:00 03/18/17 20:59 02/16/17 20:55 10 MG Morphine Sulfate (MoRPHine SULFATE INJ) 2 mg Q2H PRN IV 02/16/17 17:45 03/02/17 17:44 02/16/17 20:55 2 MG Methylprednisolone Sodium Succinate 60 mg/Syringe 0.96 ml @ 1.5 mls/min Q6H IV 02/16/17 20:00 03/18/17 19:59 02/17/17 02:34 1.5 MLS/MIN Miscellaneous (Iv Fluids Completed) 1 ea PRN PRN N/A 02/16/17 18:30 02/16/18 18:29 Meloxicam (Mobic Tab) 15 mg QAM PO 02/17/17 09:00 03/19/17 08:59 UNV Pregabalin (Lyrica Cap) 25 mg BID PO 02/17/17 09:00 03/19/17 08:59 UNV Nortriptyline HCl (Pamelor Cap) 25 mg HS PO 02/17/17 21:00 03/19/17 20:59 UNV Review of Systems 10 point review of systems was otherwise negative aside from HPI Physical Exam Height & Weight: Height 5 feet, 8.00 inches. Weight 75.000 (Kilograms) 165 (Pounds) Last Vital Signs Documentation Date Time Temp Pulse Resp B/P (MAP) Pulse Ox O2 Delivery O2 Flow Rate FiO2 02/17/17 07:45 Room Air 02/17/17 07:09 36.8 72 16 118/66 (83) 97 Exam: Awake alert noted 3 appearing in no acute distress lying in her bed without difficulty log rolling in bed She is calm and cooperative on exam, reporting "I feel much better today than yesterday" HEENT pupils are equally round and reactive to light neck is supple CV regular rate and rhythm Lungs no audible wheezes or rhonchi Skin warm and dry to touch with no skin tears breakdown Spine she has mild tenderness over L4 through S1 axial midline, nontender over bilateral SI joints or greater trochanters. She has adequate range of motion of her lumbar spine in all planes Lower extremities she has 5 out of 5 strength bilateral lower extremities equal throughout with intact sensation no appreciable ankle clonus she has a marginally positive straight leg raise bilaterally worsened with Achilles stretch Cranial nerves are grossly intact and gait was not observed Laboratory Laboratory Results (Last CBC): 02/16/17 09:10 Red Blood Count 4.26, Mean Corpuscular Volume 93.9, Mean Corpuscular Hemoglobin 31.7, Mean Corpuscular Hemoglobin Concent 33.8, Mean Platelet Volume 10.0, Neutrophils (%) (Auto) 77.6, Lymphocytes (%) (Auto) 16.6, Monocytes (%) (Auto) 4.4, Eosinophils (%) (Auto) 0.7, Basophils (%) (Auto) 0.5, Neutrophils # (Auto) 8.50 H, Lymphocytes # (Auto) 1.82, Monocytes # (Auto) 0.48, Eosinophils # (Auto ) 0.08, Basophils # (Auto) 0.05 Imaging MRI: non enhanced, reports reviewed, images reviewed MRI Findings Patient: ROSENDO DODSON Address1: [address] [place] [address] Rec: [id number] Address2: Acct ID: [id number] [facility] Zip: [place] [address] Date: 1990 Sex: F Room/Bed: Ref Phy: Maciej Stinson M.D. SC: KATARINA Davidson Phy: Report #: [id number] Sammie Phy: Maciej Stinson M.D. Test: LSWOC Admit Phy: Health Care Coordinator: CUSTCH Interpreting Phy: Brandan Tubbs M.D. Diagnosis: BACK PAIN Ordering Phy: Yessenia East M.D. Service Date: 02/16/17 Admit Date: 02/16/17 MNE: [id number] CONF: DICTATED BY: Brandan Tubbs M.D.]] CC: Yessenia East M.D. Hester, Christopher E., M.D. Endcc: [~ rep ct add3]] LUMBAR SPINE W/O CONTRAST HISTORY: Pain lumbar radiculopathy TECHNIQUE: Multiplanar multisequence MRI of the lumbar spine was performed without the use of contrast. COMPARISON: None. FINDINGS: For the purpose of the report the L5-S1 disc space will be located on axial image 27 of 30. Moderate disc desiccation L4-L5. Posterior bulging disc/mild disc herniation at that level. No evidence for bone marrow replacing process. L1-L2: No significant central canal or neural foraminal narrowing. L2-L3: No significant central canal or neural foraminal narrowing. L3-L4: No significant central canal or neural foraminal narrowing. L4-L5: Mild broad-based central disc herniation. Moderate impact anterior thecal sac. No significant compromise of the neuroforamina. L5-S1: No significant central canal or neural foraminal narrowing. IMPRESSION: 1. Mild central disc herniation L4-L5. 2. Minimal/mild impact upon the anterior thecal sac. 3. Study is otherwise negative. Past Records Previous Records: personally reviewed by me I reviewed her previous pain management notes from 2011 through present [place] Drug Monitoring Program Search Results: patient reviewed within database, no issues identified Opioid Risk Assessment Risk assessment performed, no issues identified Assessment 1. L4 to 5 central disc herniation improved from L4 to 5 disc extrusion on previous MRI January 2012 2. Lumbar radiculitis right lower extremity predominant Recommendations 1. The patient defers repeat lumbar epidural at this time and for conservative medication management. She declines surgical consultation at this time. 2. I will initiate Lyrica 25 mg by mouth twice a day, nortriptyline 25 mg by mouth daily at bedtime, meloxicam 15 mg by mouth daily, orders were written. She was counseled on the risks and benefits of the medications including side effects prior to ordering of these medications. 3. She understands that it may take time for nortriptyline to be efficacious and subsequently we will have a follow-up appointment with her that's already been scheduled at [facility] pain management office Monday, at 1:20 PM. 4. Would recommend that in addition to nortriptyline, Lyrica, meloxicam should she be sent home with a Medrol Dosepak. 5. She should continue to perform her physical therapy stretches as previous. Thank you for the consultation, please call should you have any questions.
[2017-02-17] MEDS: PREGABALIN 25MG CAP PO SCH ×2 (10:28→21:15)
[2017-02-17] MEDS: MELOXICAM 7.5 MG TAB PO SCH (10:28)
--- NOTE | 2017-02-17 13:27 | Progress Note ---
Subjective Date of Service: Feb 17, 2017. Subjective Pt evaluation today including: conversation w/ patient, physical exam, chart review, lab review, review of studies, conversation w/ [facility] consultant, review of inpatient medication list Low back pain has been it'll be better, was able to be up to the restroom but with significant pain Report no pain when no movement Right-sided low back pain, was mild right anterior thigh numbness No urinary and stool incontinence Problem List Medical Problems: (1) Herniated intervertebral disc of lumbar spine Status: Acute (2) Lumbar disc herniation with radiculopathy Status: Acute Review of Systems Constitutional: No fever, No chills, No sweats, No weight loss, No weakness, No fatigue, No problem reported Eyes: No worsening of vision, No eye pain, No redness, No discharge, No diplopia ENT: No hearing loss, No unusual epistaxis, No nasal symptoms, No sore throat, No tinnitus, No dental problems, No trouble swallowing Respiratory: No cough, No sputum, No wheezing, No shortness of breath, No dyspnea on exertion, No dyspnea at rest, No hemoptysis Cardiac: No chest pain, No orthopnea, No PND, No edema, No claudication, No palpitations Abdomen: No pain, No nausea, No vomiting, No diarrhea, No constipation Musculoskeletal: + joint pain, No muscle pain, No swelling, No calf pain Female : No dysuria, No urinary frequency, No hematuria, No incontinence, No abnormal vaginal bleeding, No vaginal discharge Neurologic: No memory loss, No paralysis, No weakness, No numbness/tingling, No vertigo, No balance problems Psychiatric: No depression symptoms, No anhedonism, No anxiety, No insomnia, No substance abuse Heme: No abnormal bleeding/bruising, No clotting problems, No swollen lymph nodes, No night sweats Endo: No fatigue, No excessive thirst, No excessive urination Skin: No rash, No itch, No new/changing skin lesions, No color change, No bleeding Objective Vital Signs Date Time Temp Pulse Resp B/P (MAP) Pulse Ox O2 Delivery O2 Flow Rate FiO2 02/17/17 07:45 Room Air 02/17/17 07:09 36.8 72 16 118/66 (83) 97 Room Air 02/16/17 23:10 Room Air 02/16/17 22:52 36.8 69 16 113/70 (84) 97 Room Air 02/16/17 18:45 36.8 88 16 133/71 (91) 94 Room Air 02/16/17 18:45 Room Air 02/16/17 18:32 78 20 140/90 97 Room Air 02/16/17 16:45 Room Air 02/16/17 14:34 78 22 97 02/16/17 14:30 140/92 02/16/17 14:12 145/75 02/16/17 14:11 107 18 145/75 98 Room Air 02/16/17 14:04 85 18 02/16/17 13:35 114/65 02/16/17 13:34 89 21 02/16/17 13:26 113 Physical Exam General Appearance: WD/WN, no apparent distress Eyes: normal inspection, PERRL, EOMI, sclerae normal ENT: normal ENT inspection, hearing grossly normal, pharynx normal Neck: supple, no adenopathy, thyroid normal, no JVD, no carotid bruits, trachea midline Respiratory/Chest: chest non-tender, lungs clear, normal breath sounds, no respiratory distress, no accessory muscle use Cardiovascular: regular rate, rhythm, no edema, no gallop, no JVD, no murmur Abdomen: normal bowel sounds, non tender, soft, no organomegaly, no pulsatile mass Extremities: normal range of motion, non-tender, normal inspection, no pedal edema, no calf tenderness, normal capillary refill, pelvis stable Neurologic/Psychiatric: healthcare recruiter II-XII nml as tested, no motor/sensory deficits, alert, normal mood/affect, oriented x 3 Skin: normal color, warm/dry, no rash Lymphatic: no adenopathy Laboratory Results Last 24 Hours Test 02/16/17 13:55 Urine Color YELLOW Urine Appearance CLOUDY Urine pH 7.5 Urine Specific [place] 1.021 Urine Protein NEG Urine Glucose (UA) NEG Urine Ketones 1+ Urine Occult Blood NEG Urine Nitrite NEG Urine Bilirubin NEG Urine Urobilinogen NEG Urine Leukocyte Esterase LARGE Urine WBC (Auto) >30 /hpf Urine RBC (Auto) 0-4 /hpf Urine Hyaline Casts (Auto) 10-30 /lpf Urine Epithelial Cells (Auto) >30 /lpf Urine Bacteria (Auto) 1+ Assessment and Plan 26-year-old with L4- 5 moderate disc desiccation with posterior bulging disc a mild disc herniation at that level--the patient be admitted on 02/17/2017 to the medical surgical floor for further evaluation. L4 to 5 central disc herniation improved from L4 to 5 disc extrusion on previous MRI January 2012 Lumbar radiculitis right lower extremity predominant Per report , has received 125 mg of Solu-Medrol IV and emergency department and will be continued at 60 mg IV every 6 hours. Acetaminophen, hydrocodone/APAP, and morphine IV for pain control. Dr. Ward known to patient, saw patient already Home medicine of Flexeril was stopped, and Has baclofen 10 mg by mouth 3 times a day. Per pain management , The patient defers repeat lumbar epidural at this time and for conservative medication management. She declines surgical consultation at this time. Dr. Ward has started Lyrica 25 mg by mouth twice a day, nortriptyline 25 mg by mouth daily at bedtime, meloxicam 15 mg by mouth daily patient have been scheduled at [facility] pain management office 03/03/2017 at 1:[address] Ward Would recommend that in addition to nortriptyline, Lyrica, meloxicam should she be sent home with a Medrol Dosepak. Has requested PT OT, increase activity , should continue to perform her physical therapy stretches as previous. Continued [facility] stay due to: home environment unsafe for pt Discharge planning: home
[2017-02-17 15:33] VITALS: BP 120/70; PULSE 67; TEMP 36.6; O2SAT 97
[2017-02-17] MEDS ORDERED: NORTRIPTYLINE HCL 25 MG CAP PO SCH (21:00)
[2017-02-17 23:09] VITALS: BP 145/73; PULSE 75; TEMP 36.8; O2SAT 97
[2017-02-18] MEDS: MoRPHine SULFATE 2 MG/ML CARP IV PRN ×2 (00:12→08:23)
[2017-02-18] MEDS: METHYLPREDNISOLONE IV 60 MG in SYRINGE 0 ML IV SCH ×2 (01:53→08:22)
[2017-02-18] MEDS: HYDROCODONE/ACETAMOPHEN 5/325MG TAB PO PRN ×2 (02:04→12:30)
[2017-02-18] MEDS: BIRTH CONTROL - ORDER AWAITING ACTION SCH ×2 (07:19)
[2017-02-18 07:46] VITALS: BP 132/74; PULSE 61; TEMP 36.8; O2SAT 97
[2017-02-18] MEDS: BACLOFEN 10 MG TAB PO SCH (08:22)
[2017-02-18] MEDS: PREGABALIN 25MG CAP PO SCH (08:22)
[2017-02-18] MEDS: MELOXICAM 7.5 MG TAB PO SCH (08:22)
[2017-02-18] MEDS ORDERED: LRS10 PO (09:29)
[2017-02-18] MEDS ORDERED: METH4PAK PO (09:29)
[2017-02-18] MEDS ORDERED: LYR25 PO (09:29)
[2017-02-18] MEDS ORDERED: MBC75 PO (09:29)
[2017-02-18] MEDS ORDERED: NRT25 PO (09:29)
--- NOTE | 2017-02-18 09:32 | Discharge Instructions ---
Discharge Instructions Date of Service Feb 18, 2017. Admission Reason for Admission: Herniated Intervertebral Disc Of Lumbar Spine Discharge Discharge Diagnosis / Problem: central disc herniation and LBP Discharge Goals Goal(s): Decrease discomfort, Improve function, Increase independence, Improve disease control, Improve nutritional status, Learn about illness, Diagnostic testing, Therapeutic intervention, Prevent Disease Progression, Specific goals Activity Recommendations Activity Limitations: as noted below (as tolerated and fall precaution) . Instructions / Follow-Up Instructions / Follow-Up you have L4 to 5 central disc herniation per recommend of Dr. ambrosio: you new medicines includes, baclofen 10 mg by mouth 3 times a day. Lyrica 25 mg by mouth twice a day, nortriptyline 25 mg by mouth daily at bedtime, meloxicam 15 mg by mouth daily you have been scheduled at [facility] pain management office 03/03/2017 at 1:20 PM. please keep the appointment I am send you home with a Medrol Dosepak as well - you need to follow up with your primary care physician in 1 week, - take medication as instructed, never overdose or any misuse, or take with alcohol, because misuse of medicine may cause organ damage or , call your primary care physician if have questions of medicaitons. - call your primary care physician OR go to local emergency room if has any fever/chill, chest pain, shortness of breathing, nausea/vomiting/abdominal pain , facial droop/slurry speech/local weakness, or if has any questions. - fall precaution - diet as instructed - you need to follow up with your subspecialist - you should understand that it is important to follow up the above instruction , and "not following the above instruction" may cause delayed or missed care of your medical conditions which may cause permanent organ damage and even . Current Hospital Diet Patient's current hospital diet: Regular Diet Discharge Diet Recommended Diet: Regular Diet Procedures Procedures Performed: no Pending Studies Studies pending at discharge: no Medical Emergencies . Who to Call and When: Medical Emergencies: If at any time you feel your situation is an emergency, please call 911 immediately. . Non-Emergent Contact Non-Emergency issues call your: Primary Care Provider, Specialist (pain management) . . "Provider Documentation" section prepared by Zay Knox. . VTE Core Measure Inpt VTE Proph given/why not?: SCD's
[2017-02-18] MEDS ORDERED: NURSING VERBAL MED ORDER ONE (09:45)
[2017-02-18] MEDS ORDERED: POLYETHYLENE (MIRALAX) 17 GM PACK PO ONE (10:00)
--- NOTE | 2017-02-18 10:30 | Discharge Summary ---
Discharge Summary Date of Service Feb 18, 2017. Discharge Summary Admission Date: Feb 16, 2017 at 17:38 Discharge Date: Feb 18, 2017 Discharge Disposition: Home Principal Diagnosis: L4 to 5 central disc herniation Problems/Secondary Diagnoses: I Immunizations: Have You Had Influenza Vaccine: Unknown History of Tetanus Vaccine?: Unknown History of Pneumococcal: No History of Hepatitis B Vaccine: Unknown Procedures: No Consultations: Pain management Medication Reconciliation New Medications: Methylprednisolone (Medrol Dosepak) 4 Mg Philippe 1 PKT PO UD for 6 Days, #1 PKT Baclofen (Baclofen) 10 Mg Tab 10 MG PO TID for 10 Days, #30 TAB Meloxicam (Meloxicam) 7.5 Mg Tab 15 MG PO QAM for 10 Days, #20 TAB Nortriptyline HCl (Nortriptyline HCl) 25 Mg Cap 25 MG PO HS for 30 Days, CAP Pregabalin (Lyrica) 25 Mg Cap 25 MG PO BID for 30 Days, #60 CAP Continued Medications: Control Pills ( Control Pills) Tab 1 TAB PO HS Hydrocodone/Acetaminophen 5MG/325MG (Zalma 5MG/325MG) Tab 1 TABLET PO Q6 PRN for Pain, #20 TAB Discontinued Medications: Cyclobenzaprine Hcl (Flexeril) 10 Mg Tab 1 TAB PO TID for 10 Days, #30 TAB Prednisone (Prednisone) 10 Mg Tab 10 MG PO DIRECTED, #31 TAB 40 mg for 4 days, 30 mg for 3 days, 20 mg for 2 days, 10 mg for 2 days Discharge Exam Pending is better controlled, however patient reports some constipation, no bowel movement for 3 days, no other complaint Denied lower extremity weakness or tingling any numbness Deny nausea vomiting or, urinary incontinence Review of Systems: Constitutional: No fever, No chills, No sweats, No weight loss, No weakness , No fatigue, No problem reported Eyes: No worsening of vision, No eye pain, No redness, No discharge, No diplopia, No problem reported ENT: No hearing loss, No unusual epistaxis, No nasal symptoms, No sore throat, No tinnitus, No dental problems, No trouble swallowing, No problem reported Respiratory: No cough, No sputum, No wheezing, No shortness of breath, No dyspnea on exertion, No dyspnea at rest, No hemoptysis, No problem reported Cardiovascular: No chest pain, No orthopnea, No PND, No edema, No claudication, No palpitations, No problem reported Abdomen: No pain, No nausea, No vomiting, No diarrhea, No constipation, No GI bleeding, No problem reported Musculoskeletal: + joint pain Genitourinary - Female: No dysuria, No urinary frequency, No urinary urgency , No urinary incontinence, No urinary retention, No hematuria, No dysmenorrhea, No menorrhagia, No metrorrhagia, No rash, No vaginal bleeding, No vaginal discharge, No vaginal itching, No vulvodynia, No , No problem reported Neurologic: No memory loss, No paralysis, No weakness, No numbness/tingling , No vertigo, No balance problems, No problem reported Psychiatric: No depression symptoms, No anhedonism, No anxiety, No insomnia , No substance abuse, No problem reported Endocrine: No fatigue, No excessive thirst, No excessive urination, No problem reported Hematologic / Lymphatic: No abnormal bleeding/bruising, No clotting problems , No swollen lymph nodes, No night sweats, No problem reported Integumentary: No rash, No itch, No new/changing skin lesions, No color change, No bleeding, No problem reported Physical Exam: General Appearance: WD/WN, no apparent distress Eyes: normal inspection, PERRL, EOMI ENT: normal ENT inspection, hearing grossly normal, TMs normal Neck: supple, no adenopathy, thyroid normal, no JVD Respiratory/Chest: chest non-tender, normal breath sounds, no respiratory distress, no accessory muscle use, + decreased breath sounds Cardiovascular: no gallop, no JVD, no murmur, normal peripheral pulses Abdomen / GI: normal bowel sounds, non tender, soft, no organomegaly, no pulsatile mass, normal rectal exam, occult blood negative Extremities: normal inspection, no calf tenderness, normal capillary refill , no pedal edema, normal range of motion, + pertinent finding (bilateral lower extremity straight leg raising test positive for low back pain) 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 Per report , L4 to 5 central disc herniation improved from L4 to 5 disc extrusion on previous MRI January 2012 Lumbar radiculitis right lower extremity predominant Pain management was consulted, has received 125 mg of Solu-Medrol IV and emergency department and Has been continued at 60 mg IV every 6 hours. Acetaminophen, hydrocodone/APAP, and morphine IV for pain control. Dr. Ward known to patient, saw patient already Home medicine of Flexeril was stopped, and Has baclofen 10 mg by mouth 3 times a day, will continue Per pain management , The patient defers repeat lumbar epidural at this time and for conservative medication management. She declines surgical consultation at this time. Dr. Ward has started Lyrica 25 mg by mouth twice a day, nortriptyline 25 mg by mouth daily at bedtime, meloxicam 15 mg by mouth daily patient have been scheduled at [facility] pain management office 03/03/2017 at 1:[address] Ward Would recommend that in addition to nortriptyline, Lyrica, meloxicam should she be sent home with a Medrol Dosepak, they were all ordered upon discharge Has requested PT OT, increase activity , physical therapy advise okay to discharge home, has some instructions to patient Patient is discharged in stable condition today Has constipation, give 1 dose of MiraLAX Advise her to follow-up with PCP for all of the medical conditions Instructions / Follow-Up you have L4 to 5 central disc herniation per recommend of Dr. ward: you new medicines includes, baclofen 10 mg by mouth 3 times a day. Lyrica 25 mg by mouth twice a day, nortriptyline 25 mg by mouth daily at bedtime, meloxicam 15 mg by mouth daily you have been scheduled at [facility] pain management office 03/03/2017 at 1:20 PM. please keep the appointment I am send you home with a Medrol Dosepak as well - you need to follow up with your primary care physician in 1 week, - take medication as instructed, never overdose or any misuse, or take with alcohol, because misuse of medicine may cause organ damage or , call your primary care physician if have questions of medicaitons. - call your primary care physician OR go to local emergency room if has any fever/chill, chest pain, shortness of breathing, nausea/vomiting/abdominal pain , facial droop/slurry speech/local weakness, or if has any questions. - fall precaution - diet as instructed - you need to follow up with your subspecialist - you should understand that it is important to follow up the above instruction , and "not following the above instruction" may cause delayed or missed care of your medical conditions which may cause permanent organ damage and even . Total Time Spent: Less than 30 minutes This includes examination of the patient, discharge planning, medication reconciliation, and communication with other providers. Discharge Instructions Please refer to the electronic Patient Visit Report (Discharge Instructions) for additional information. Additional Copies To Lawanda Ward DO; Maciej Stinson M.D.
[2017-02-18 10:58] VITALS: BP 132/74; PULSE 61; TEMP 36.8; O2SAT 97
== END 2017-02-18 13:31 | disposition home or self-care (01) ==
LOC: C.EDB 08:36 → C.3E 17:38 → EDBEDREQSVC 17:54 → ENRESERV 18:01
PROVIDERS: ADMIT Hospitalist; ATTEND Hospitalist
DX: M51.16 Intervertebral disc disorders with radiculopathy, lumbar region (principal)

== ENCOUNTER → 2017-08-05 | Outpatient (CLI) | payer BC ==
[~2017-08-05] MED LIST changes: -ACET-1256 PO; -GABA1CAP PO; +HYDR-5688 PO; -IBUP-1451 PO; +LRS10 PO; +LYR25 PO; +MBC75 PO; +NRT25 PO
[2017-08-05 13:03] LABS: BASO ABS # 0.06 K/uL (0-0.2); EOS % 2.9 %; EOS ABS # 0.18 K/uL (0-0.5); HEMATOCRIT 41.8 % (37-47); HEMOGLOBIN 14.1 g/dL (12.0-16.0); IG# 0.02 K/uL (0.00-0.02); LYMPH % 34.1 %; MEAN CELL VOLUME 94.4 fL (80-100); MEAN CORPUSCULAR HEMOGLOBIN 31.8 pg (25-34); MEAN CORPUSCULAR HGB CONC 33.7 g/dl (32-36); MEAN PLATELET VOLUME 10.3 fL (7.4-10.4); MONO % 7.2 %; MONO ABS # 0.44 K/uL (0.11-0.59); NEUT % 54.5 %; NEUT ABS # 3.35 K/uL (1.4-6.5); PLATELET COUNT 291 K/uL (130-400); WHITE BLOOD COUNT 6.15 K/uL (4.8-10.8)
[2017-08-05 13:12] LABS: ALBUMIN 3.5 gm/dl (3.4-5.0); ALT/SGPT 32 U/L (12-78); AST/SGOT 30 U/L (15-37); BLOOD UREA NITROGEN 10 mg/dl (7-18); CALCIUM 9.3 mg/dl (8.5-10.1); CARBON DIOXIDE 29 mmol/L (21-32); CREATININE 0.95 mg/dl (0.60-1.20); GLUCOSE 67 mg/dl (70-99); POTASSIUM 4.1 mmol/L (3.5-5.1); SODIUM 141 mmol/L (136-145)
[2017-08-05 13:15] LABS: ALKALINE PHOSPHATASE 44 U/L (45-117); TOTAL PROTEIN 6.8 gm/dl (6.4-8.2)
== END | disposition home or self-care (01) ==
LOC: C.LAB1850 10:13
PROVIDERS: ATTEND Internal Medicine
DX: R19.7 Diarrhea, unspecified (principal)